=== PATIENT | female | born 1975 | race African-American/Black ===

== ENCOUNTER 2017-05-23 07:45 | Emergency (ER) | payer OTHER ==
[2017-05-23 08:10] VITALS: BP 130/65
--- NOTE | 2017-05-23 08:51 | UC ---
Skin Complaint HPI - HPI Summary HPI Summary: 3rd time getting an abscess left axilla. Has been present this time for 3 days got smaller last night with heat - History of Current Complaint Chief Complaint: UCSkin Time Seen by Provider: 05/23/17 08:43 Stated Complaint: SOFT TISSUE Hx Obtained From: Patient Hx Last Menstrual Period: 05/01/17 ?: No Onset/Duration: Gradual Onset, Lasting Days - 3 Timing: Constant Onset Severity: Moderate Current Severity: Moderate Pain Intensity: 6 Pain Scale Used: 0-10 Numeric Location: Discrete - left axilla Character: Pain, Raised Aggravating Factor(s): Touch Alleviating Factor(s): Heat Associated Signs & Symptoms: Positive: Negative - Allergy/Home Medications Allergies/Adverse Reactions: Allergies Allergy/AdvReac Type Severity Reaction Status Date / Time No Known Allergies Allergy Verified 07/16/15 14:52 Home Medications: Home Medications Albuterol HFA INHALER* [Ventolin HFA Inhaler*] 1 puff INH Q4H PRN 05/23/17 [ History Confirmed 05/23/17] Review of Systems Constitutional: Negative Skin: Negative, Other - 6 cm diameter hard abscess left axilla, Eyes: Negative ENT: Negative Respiratory: Negative Cardiovascular: Negative Gastrointestinal: Negative Genitourinary: Negative Motor: Negative Neurovascular: Negative Musculoskeletal: Negative Neurological: Negative Psychological: Negative Is Patient Immunocompromised?: No All Other Systems Reviewed And Are Negative: Yes PMH/Surg Hx/FS Hx/Imm Hx Previously Healthy: No Respiratory History: Asthma - Surgical History Surgical History: Yes Surgery Procedure, Year, and Place: anal fissure repair - Family History Known Family History: Positive: None - Social History Occupation: Employed Full-time Lives: Alone Alcohol Use: Rare Substance Use Type: None Smoking Status (MU): Light Every Day Tobacco Smoker Cessation Counseling: Patient Advised to Stop Physical Exam Triage Information Reviewed: Yes Appearance: Well-Appearing, No Pain Distress, Well-Nourished Vital Signs: Initial Vital Signs Temp 98.1 F 05/23/17 08:04 Pulse 78 05/23/17 08:04 Resp 18 05/23/17 08:04 BP 130/65 05/23/17 08:04 Pulse Ox 100 05/23/17 08:04 Vital Signs Reviewed: Yes Eye Exam: Normal Eyes: Positive: Conjunctiva Clear ENT Exam: Normal ENT: Positive: Normal ENT inspection, Hearing grossly normal, TMs normal. Negative: Nasal congestion, Nasal drainage, Trismus, Muffled/hoarse voice Dental Exam: Normal Neck exam: Normal Neck: Positive: Supple, Nontender Respiratory Exam: Normal Respiratory: Positive: Chest non-tender, No respiratory distress, No accessory muscle use Cardiovascular Exam: Normal Cardiovascular: Positive: Pulses Normal, Brisk Capillary Refill Musculoskeletal Exam: Normal Musculoskeletal: Positive: Strength Intact, ROM Intact, No Edema Neurological Exam: Normal Neurological: Positive: Alert, Muscle Tone Normal Psychological Exam: Normal Skin Exam: Other Skin: Positive: Other - 6 cm induration left axilla, no fluctulance, Course/Dx - Course Course Of Treatment: heat, bactrim follow with surgical associates in next 2-3 day - Differential Diagnoses - Skin Complaint Differential Diagnoses: Abscess, Cellulitis, Lymphadenitis - Diagnoses Provider Diagnoses: Abscess left axilla, nicotine dependent Discharge - Discharge Plan Condition: Stable Disposition: HOME Prescriptions: Sulfamethox/Trimethoprim DS* [Bactrim DS 800/160 TAB*] 1 tab PO BID #20 tab Patient Education Materials: Ibuprofen (By mouth), Abscess (ED), Warm Compress or Soak (ED) Forms: *Work Release Referrals: [facility] [Provider Group] - 2 Days
== END 2017-05-23 09:03 | disposition home or self-care (01) ==
LOC: UCEAST 07:45
DX: L02.412 Cutaneous abscess of left axilla (principal); J45.909 Unspecified asthma, uncomplicated; F17.210 Nicotine dependence, cigarettes, uncomplicated
CPT/HCPCS: 99202; G0463

== ENCOUNTER 2017-05-26 10:21 | Day surgery (SDC) | payer OTHER ==
[~2017-05-26 10:21] MED LIST: Buffered Lidocaine 0.9% SYRIN* 5 ML/SYR SYRINGE INTRADERM ONE; Famotidine IV* 10 MG/ML 2 ML (20 mg) IV ONE; Ketorolac INJ* 30 MG/ML 1 ML VIAL ONE; Lidocaine 2% PF * 5 ML VIAL ONE; Midazolam* 1 MG/ML 5 ML VIAL (5 MG) ONE; Ondansetron INJ* 2 MG/ML VIAL ONE; Propofol* 10 MG/ML 20 ML BTL IV PUSH ONE; fentaNYL* 50 MCG/ML 2 ML VIAL (100 MCG VIAL) ONE
[2017-05-26] MEDS ORDERED: Ketorolac INJ* 30 MG/ML 1 ML VIAL ONE (10:29)
[2017-05-26] MEDS ORDERED: Famotidine IV* 10 MG/ML 2 ML (20 mg) ONE (10:29)
[2017-05-26] MEDS ORDERED: ceFAZolin 2 GM PREMIX (*) 50 ML IVPB ONE (10:29)
[2017-05-26] MEDS ORDERED: Buffered Lidocaine 0.9% SYRIN* 5 ML/SYR SYRINGE ONE (10:29)
[2017-05-26] MEDS ORDERED: HYDROmorphone INJ* 1 MG/ML CARPUJECT SYRINGE IV PRN (10:32)
[2017-05-26] MEDS ORDERED: oxyCODONE TAB* 5 MG TAB PO PRN (10:32)
[2017-05-26] MEDS ORDERED: Acetaminophen TAB* 325 MG PO PRN (10:32)
[2017-05-26] MEDS ORDERED: DiMENhydriNATE IV* 50 MG/ML VIAL IV PUSH PRN (10:32)
[2017-05-26] MEDS ORDERED: Bupivacaine 0.25% SDV* 30 ML ONE (10:56)
[2017-05-26] MEDS ORDERED: Dexamethasone IV* 4 MG/ML 1 ML (4 MG) ONE (11:10)
[2017-05-26] MEDS ORDERED: DiMENhydriNATE IV* 50 MG/ML VIAL ONE ×2 (11:10→12:20)
[2017-05-26 13:08] VITALS: BP 119/68
--- NOTE | 2017-05-26 23:00 | OP ---
CC: Ariadne Cheema MD * DATE OF OPERATION: 05/26/17 - [facility] DATE OF : 77 SURGEON: oJse Martin Mix MD CAPACITY MANAGER: Joan Nugent NP ANESTHESIOLOGIST: Dr. Saavedra. ANESTHESIA: General, local infiltration. PRE-OP DIAGNOSIS: Chronic hidradenitis of the left axilla. POST-OP DIAGNOSIS: Chronic hidradenitis of the left axilla. OPERATIVE PROCEDURE: Excision of chronic hidradenitis of the left axilla. DESCRIPTION OF PROCEDURE: The patient was supine on the operative table. After adequate anesthetic, compression stockings, Jonas Hugger warmer, and intravenous antibiotics, the left axilla was prepped and draped in a sterile fashion. Local infiltrative anesthesia was utilized. Elliptical incision approximately 5 x 8 cm was created and the large mass of hidradenitis was excised in its entirety. There was no spillage. The specimen was sent in formalin for pathologic evaluation. The operative field was irrigated and hemostasis obtained using electrocautery. Closure was accomplished in layers using 3-0 Vicryl and 4-0 Prolene followed by a sterile dressing. She tolerated the procedure well, was awakened, and brought to the Recovery in good condition. No complications. No drains. Pathologic specimen as above. Sponge and instrument counts correct. Estimated blood loss 30 mL. [id number]/[facility] #: [id number] MTDD
== END 2017-05-26 13:05 | disposition home or self-care (01) ==
LOC: OR 10:21
PROVIDERS: ATTEND Surgery
DX: L73.2 Hidradenitis suppurativa (principal); L72.0 Epidermal cyst; L02.412 Cutaneous abscess of left axilla; Z72.0 Tobacco use
CPT/HCPCS: 88305; J0690; J1100; J1240; J1885; J2250; J2405; J2704; J3010

== ENCOUNTER 2019-07-13 11:28 | Emergency (ER) | payer SELFPAY ==
[2019-07-13 12:13] LABS: ABS Basophils 0.1 10^3/ul (0-0.2); ABS Eosinophils 0.4 10^3/ul (0-0.6); ABS Lymphocytes 1.6 10^3/ul (1.0-4.8); ABS Monocytes 0.7 10^3/ul (0-0.8); ABS Neutrophils 3.6 10^3/ul (1.5-7.7); Eosinophil % 6.9 %; Hematocrit 37 % (35-47); Hemoglobin 12.4 g/dL (12.0-16.0); Lymphocyte % 25.4 %; Mean Corpuscular HGB Conc 34 g/dL (31-36); Mean Corpuscular Hemoglobin 33 pg (27-31); Mean Corpuscular Volume 96 fL (80-97); Mean Platelet Volume 7.5 fL (7.4-10.4); Nucleated Red Blood Cells % 0.2; Platelet Count 394 10^3/uL (150-450); Red Cell Distribution Width 13 % (10-15); White Blood Count 6.4 10^3/uL (3.5-10.8)
[2019-07-13 12:24] LABS: INR 1.01 (0.82-1.09)
[2019-07-13] MEDS ORDERED: NS 0.9% 1000 ML** 1,000 ML IV ONE (12:26)
[2019-07-13 12:34] LABS: ALT 15 U/L (7-52); AST 19 U/L (13-39); Albumin 3.9 g/dL (3.2-5.2); Albumin/Globulin Ratio 1.1 (1-3); Alkaline Phosphatase 74 U/L (34-104); Anion Gap 4 mmol/L (2-11); BUN/Creatinine Ratio 15.9 (8-20); Blood Urea Nitrogen 11 mg/dL (6-24); C Reactive Protein 2.02 mg/L (<8.01); CO2 Carbon Dioxide 25 mmol/L (22-32); Calcium 8.6 mg/dL (8.6-10.3); Chloride 108 mmol/L (101-111); EGFR African American 112.4 (>60); EGFR Non-African American 92.9 (>60); Globulin 3.4 g/dL (2-4); Glucose 98 mg/dL (70-100); Potassium 3.6 mmol/L (3.5-5.0); Sodium 137 mmol/L (135-145); Total Protein 7.3 g/dL (6.4-8.9)
--- NOTE | 2019-07-13 12:34 | ED ---
GI/ HPI - HPI Summary HPI Summary: 44-year-old female presents with vaginal bleeding for couple past month. States it started in January after she was having sex. she states over the past three days the bleeding has gotten worst. States she has been having occasional cramping. She is passing blood clots. She denies any nausea vomiting. No urinary symptoms. no diarrhea or constipation. she states that she feels weak but denies any palpitations. - History of Current Complaint Chief Complaint: EDOBProblems Time Seen by Provider: 07/13/19 11:46 Stated Complaint: GENERAL ILLNESS Hx Last Menstrual Period: 05/01/17 Pain Intensity: 4 - Allergy/Home Medications Allergies/Adverse Reactions: Allergies Allergy/AdvReac Type Severity Reaction Status Date / Time No Known Allergies Allergy Verified 07/13/19 11:33 Home Medications: Home Medications LORazepam [Lorazepam] 0.5 mg PO BID PRN 07/13/19 [History Confirmed 07/13/19] Sertraline HCl 50 mg PO DAILY 07/13/19 [History Confirmed 07/13/19] PMH/Surg Hx/FS Hx/Imm Hx Endocrine/Hematology History: Denies: Hx Anticoagulant Therapy Respiratory History: Reports: Hx Asthma - HAS INHALER, HASN'T USED IN PAST 6 MONTHS Musculoskeletal History: Reports: Hx Bursitis - Hx OF 2003 RT SHOULDER, NO Sx SINCE Sensory History: Reports: Hx Contacts or Glasses - GLASSES Opthamlomology History: Reports: Hx Contacts or Glasses - GLASSES Psychiatric History: Reports: Hx Anxiety, Hx Depression - NO CURRENT MEDS - Surgical History Surgery Procedure, Year, and Place: 2000 anal fissure repair [place] Hx Anesthesia Reactions: No Infectious Disease History: No Infectious Disease History: Denies: Traveled Outside the [place] in Last 30 Days - Family History Known Family History: Positive: None Negative: Blood Disorder - Social History Alcohol Use: Rare Alcohol Amount: 2-3 DRINKS/MONTH Substance Use Type: Reports: Marijuana Smoking Status (MU): Light Every Day Tobacco Smoker Type: Cigarettes Amount Used/How Often: 5 OR LESS CIGS. /DAY Have You Smoked in the Last Year: Yes Review of Systems Negative: Fever Negative: Chest Pain Negative: Shortness Of Breath Positive: Abdominal Pain, Other - vaginal bleeding. Negative: Vomiting, Diarrhea, Nausea All Other Systems Reviewed And Are Negative: Yes Physical Exam Triage Information Reviewed: Yes Vital Signs On Initial Exam: Initial Vitals Temp Pulse Resp BP Pulse Ox 98.6 F 109 16 157/94 99 07/13/19 11:30 07/13/19 11:30 07/13/19 11:30 07/13/19 11:30 07/13/19 11:30 Vital Signs Reviewed: Yes Appearance: Positive: Well-Appearing Skin: Positive: Warm, Dry Head/Face: Positive: Normal Head/Face Inspection Eyes: Positive: Normal, Conjunctiva Clear ENT: Positive: Pharynx normal Respiratory/Lung Sounds: Positive: Clear to Auscultation, Breath Sounds Present Cardiovascular: Positive: Normal, RRR Abdomen Description: Positive: Nontender, Soft Bowel Sounds: Positive: Present Musculoskeletal: Positive: Normal Neurological: Positive: Normal Psychiatric: Positive: Normal Procedures - Sedation Patient Received Moderate/Deep Sedation with Procedure: No Diagnostics - Vital Signs Vital Signs Temp Pulse Resp BP Pulse Ox 07/13/19 11:30 98.6 F 109 16 157/94 99 - Laboratory Lab Results: Lab Results 07/13/19 Range/Units 12:00 WBC 6.4 (3.5-10.8) 10^3/uL RBC 3.80 (3.70-4.87) 10^6 /uL Hgb 12.4 (12.0-16.0) g/dL Hct 37 (35-47) % MCV 96 (80-97) fL MCH 33 H (27-31) pg MCHC 34 (31-36) g/dL RDW 13 (10-15) % Plt Count 394 (150-450) 10^3/uL MPV 7.5 (7.4-10.4) fL Neut % (Auto) 55.3 % Lymph % (Auto) 25.4 % [place] % (Auto) 11.3 % Eos % (Auto) 6.9 % Baso % (Auto) 1.1 % Absolute Neuts (auto) 3.6 (1.5-7.7) 10^3/ul Absolute Lymphs (auto) 1.6 (1.0-4.8) 10^3/ul Absolute Monos (auto) 0.7 (0-0.8) 10^3/ul Absolute Eos (auto) 0.4 (0-0.6) 10^3/ul Absolute Basos (auto) 0.1 (0-0.2) 10^3/ul Absolute Nucleated RBC 0.0 10^3/ul Nucleated RBC % 0.2 Result Diagrams: 07/13/19 12:00 07/13/19 12:00 Lab Statement: Any lab studies that have been ordered have been reviewed, and results considered in the medical decision making process. - Ultrasound No standard instances Ultrasound Interpretation Completed By: Radiologist Summary of Ultrasound Findings: MPRESSION: RETROVERTED UTERUS, TRACE AMOUNT OF FREE INTRAPERITONEAL FLUID, OTHERWISE UNREMARKABLE. GIGU Course/Dx - Course Course Of Treatment: 44-year-old female presents with vaginal bleeding for past month. States it started in January after she was having sex. she states over the past three days the bleeding has gotten worst. States she has been having occasional cramping. She is passing blood clots. She denies any nausea vomiting. No urinary symptoms. no diarrhea or constipation. on exam nontender abd. wbc normal. h/h normal. transvaginal u/s shows no acute findings. discussed does not want to start control. patient will follow up with ob. patient understand and agrees with plan. - Diagnoses Differential Diagnoses - Female: , Urinary Tract Infection, Other - dysfunctational uterine bleeding Provider Diagnoses: Dysfunctional uterine bleeding Discharge ED - Sign-Out/Discharge Documenting (check all that apply): Patient Departure - Discharge Plan Condition: Good Disposition: HOME Patient Education Materials: Dysfunctional Uterine Bleeding (ED) Forms: *Work Release Referrals: Ariadne Cheema MD [Primary Care Provider] - Nesha Terrell MD [Medical Doctor] - Additional Instructions: follow up with cane feeder take ibuprofen 600mg twice a day Return to ED if develop any new or worsening symptoms - Billing Disposition and Condition Condition: GOOD Disposition: Home
[2019-07-13 12:37] LABS: HCG Pregnancy < 0.60 mIU/mL
[2019-07-13 13:08] LABS: Urine Appearance Clear; Urine Bilirubin Negative (Negative); Urine Blood 2+ (Negative); Urine Color Yellow; Urine Glucose Negative (Negative); Urine Ketones Negative (Negative); Urine Nitrite Negative (Negative); Urine Protein Negative (Negative); Urine Specific Gravity 1.005 (1.010-1.030); Urine Urobilinogen Negative (Negative)
[2019-07-13 13:22] LABS: Urine Bacteria Absent (Absent); Urine Red Blood Cell Trace(0-2/hpf) (Absent); Urine Squamous Epithelial Cell Present (Absent); Urine White Blood Cell Trace(0-5/hpf) (Absent)
[2019-07-13 13:31] VITALS: BP 130/83
== END 2019-07-13 13:40 | disposition home or self-care (01) ==
LOC: ED 11:28
DX: N93.8 Other specified abnormal uterine and vaginal bleeding (principal); R10.30 Lower abdominal pain, unspecified; N85.4 Malposition of uterus; J45.909 Unspecified asthma, uncomplicated; F41.9 Anxiety disorder, unspecified; F32.9 Major depressive disorder, single episode, unspecified; F17.210 Nicotine dependence, cigarettes, uncomplicated
CPT/HCPCS: 36415; 76830; 80053; 81003; 81015; 84702; 85025; 85610; 86140; 86850; 86900; 86901; 87086; 96360; 99282